=== PATIENT | female | born 1950 | race Caucasian/White ===

== ENCOUNTER 2024-04-22 20:54 | Emergency (ER) | payer MEDICARE, OTHER, SELFPAY ==
[2024-04-22 20:55] VITALS: BP 220/124
[2024-04-22 21:08] VITALS: BP 208/100
[2024-04-22 21:12] VITALS: BMI 38.7
[2024-04-22 21:28] LABS: % Basophils 0.6 % (0-2); % Eosinophils 1.4 % (0-6); % Immature Granulocytes 0.4 % (0-0.5); % Lymphocytes 18.3 % (20.5-51.1); % Monocytes 8.7 % (1.7-9.3); % Neutrophils 70.6 % (42.2-75.2); Absolute Eosinophils 0.1 10^3/uL (0-0.7); Absolute Lymphocytes 1.3 10^3/uL (1.2-3.4); Absolute Monocytes 0.6 10^3/uL (0.1-0.6); Hematocrit 40.4 % (37.0-47.0); Hemoglobin 14.4 g/dL (12.0-16.0); Mean Corp Hgb Conc. 35.6 g/dL (33.0-37.0); Mean Corpuscular Hgb 30.8 pg (27.0-31.0); Mean Corpuscular Volume 86.3 fL (81.0-99.0); Nucleated Red Blood Cells % 0 %; Platelet Count 216 10^3/uL (130-400); Red Blood Cell Count 4.68 10^6/uL (4.20-5.40); White Blood Cell Count 7.1 10^3/uL (4.8-10.8)
[2024-04-22 21:49] LABS: ALT (SGPT) 113 U/L (0-35); AST (SGOT) 257 U/L (14-36); Alkaline Phosphatase 133 U/L (38-126); Blood Urea Nitrogen 17 mg/dl (7-17); Calcium 9.2 mg/dl (8.4-10.2); Carbon Dioxide 29 mmol/L (22-30); Chloride 102 mmol/L (98-107); Estimated Creatinine Clearance 93 ml/min; Glucose 129 mg/dl (70-99); Lipase 77 U/L (23-300); Potassium 3.5 mmol/L (3.5-5.1); Sodium 140 mmol/L (135-145); Total Protein 6.6 g/dl (6.3-8.2); eGFR > 60.00
[2024-04-22 21:52] LABS: Troponin I < 0.012 ng/ml
--- NOTE | 2024-04-22 21:54 | ED.GENMED ---
History of Present Illness
General
Chief Complaint: Blood Pressure Problem
Source: patient and spouse
Exam Limitations: none
Time Seen by Provider: 04/22/24 21:05
Nursing documentation reviewed up to this point in time: agreed with
History of Present Illness
History of Present Illness:
Patient is a 73-year-old female who presents to the emergency department after developing severe mid epigastric pain going through to her back after eating pizza with a dominic nicky this evening. Just as patient got to the hospital she felt better.
Patient felt like something was stuck and that she just need to belch. Patient denies any palpitations or shortness of breath. Patient states it felt like she could not get a deep breath but she was not short of breath. Patient denies any
previous history of similar episodes. Patient denies fever or chills. Patient denies any leg pain or swelling. Patient has been taking beet root for hypertension. Patient has not taken any for a few days. Patient had been on lisinopril up until
about a year or 2 ago. Patient had difficulty getting her prescription refilled so she never went back on the lisinopril. Patient denies any headaches, neck pain, visual or speech difficulties. Patient denies any focal weakness or ataxia.
Patient states that she occasionally gets heartburn.
Past History
Past History
ED Past Medical History: HTN
Social History
Tobacco: Non-smoker
Review of Systems
Review of Systems
All Other Systems: ROS reviewed and negative except as documented in HPI and ROS
Constitutional: Reports no symptoms
EENT: Reports no symptoms
Respiratory: Reports no symptoms
Cardiac: Reports chest pain
ABD/GI: Reports abdominal pain; Denies nausea, vomiting, diarrhea, constipated or anorexia
: Reports no symptoms
Musculoskeletal: Reports back pain
Skin: Reports no symptoms
Neurological: Reports no symptoms
Hematologic/Lymphatic: Reports no symptoms
Psychiatric: Reports no symptoms
Phy Exam
Physical Exam
Physical Exam:
Physical Exam
General: No apparent distress, alert and appropriate, well nourished, well hydrated
HENT: Normocephalic, supple with no lymphadenopathy, no thyromegaly
Eyes: Clear sclera, conjuctiva without injection
Heart: Regular rhythm and rate. No S3, S4. No murmur. No NVD
Lungs: No respiratory distress, no stridor, lung sounds clear and equal bilaterally, chest wall symmetrical and nontender
Abdomen: Soft, nontender, no organomegaly, no CVA tenderness, BS good
Neuro: Alert and oriented x 3, CN II - XII intact, no motor focality, no cerebellar dysfunction
Skin: no rash
Psychiatric: well kept. interactive and cooperative
Extremities: No edema, cyanosis, tenderness, Good and equal peripheral pulses.
Course
Orders/Labs/Results
Orders:
Orders
04/22/24 20:55
ECG [Electrocardiogram (*1)] Urgent
Reason for Study: Abdominal Pain
EKG- Treatment ONCE
04/22/24 21:22
Complete Blood Count/With Diff Urgent
Comprehensive Metabolic Panel Urgent
Lipase Urgent
Troponin I Urgent
04/22/24 21:52
US Abdomen Complete/Upper Urgent
Comment:
Reason For Exam: upper abd pain with elev LFTs
Abnormal Lab Results
04/22/24
21:22
Lymphocytes % 18.3 L %
(20.5-51.1)
Glucose 129 H mg/dl
(70-99)
AST 257 H U/L
(14-36)
ALT 113 H U/L
(0-35)
Alkaline Phosphatase 133 H U/L
(38-126)
04/22/24 21:22
04/22/24 21:22
Vital Signs
Initial and Last Documented VS:
Initial Vital Signs
Temp Pulse Resp BP Pulse Ox
97.4 F 86 18 220/124 99
04/22/24 20:55 04/22/24 20:55 04/22/24 20:55 04/22/24 20:55 04/22/24 20:55
Last Documented Vital Signs
Temp Pulse Resp BP Pulse Ox
97.4 F 89 13 186/98 97
04/22/24 20:55 04/22/24 21:30 04/22/24 21:30 04/22/24 22:41 04/22/24 21:15
*Radiology
Radiology exam reviewed: radiology read reviewed (gall stone)
*Pulse Oximetry
Patient hypoxic: no
*EKG
Interpreted by ED Provider?: Yes
EKG Intrepretation Date: 04/22/24
EKG Intrepretation Time: 22:02
Interpretation: abnormal
Comparison EKG: no comparison EKG present
Heart Rate: 90
Rate: normal
Rhythm: sinus
[place]: left axis deviation
Interval: normal interval
QRS Pattern: normal QRS
Ischemia: non-specific ST changes (No ischemia)
*Jig Fitter Interpretation
Rate: normal
Interpretation: normal
Heart Rate: 90
Rhythm: sinus
*Critical Care Note
Total Time (30-74mins, 75-104mins- exclusive of procedures): Not Applicable
Update Note
Update Note:
Patient's LFTs are elevated. Believe this to be gallbladder related. On ultrasound patient does have cholelithiasis but does not appear to have cholecystitis. Patient's blood pressure continues to be elevated. Patient needs to be on lisinopril.
Patient was not on hydrochlorothiazide with it. Do not believe the patient needs to have her blood pressure lowered acutely in fact it would probably be harmful since she is asymptomatic. Patient will be prescribed lisinopril and to follow-up with
her family doctor as well as general surgery.
ED Attending Note
-
Portions of this chart may have been created with voice recognition software.� Occasional wrong word or��sound alike� substitutions may have occurred due to the inherent limitations of voice recognition software.
Discharge Plan
Departure
Patient Disposition: Home (Routine Discharge)
Date of Disposition: 04/22/24
Time of Disposition: 23:05
Patient with high blood pressure during this ER visit?: Yes
Condition: Good
Covid-19: Not Applicable
Discharge Problem:
Cholelithiasis, Hypertension
Instructions: High Blood Pressure (DC), Gallstones (DC), Low-fat diet, BLOOD PRESSURE
Prescriptions:
New
lisinopril 10 mg tablet
10 mg PO DAILY Qty: 30 6RF
Referrals:
Willam Mahmood MD [Family Provider] - Follow up in 5-7 days
Brett Salguero MD [Active] - Call in 1-3 days for appt
Interventions
Interventions:
*Risk Screen - Suicide Last Done: 04/22/24 20:55
*General Assessment Last Done: 04/22/24 21:13
*Neglect/Abuse Screening Last Done: 04/22/24 20:55
ED- Fall Risk Assessment Last Done: 04/22/24 21:13
*ED COVID-19 Vaccine History Last Done: 04/22/24 21:13
JD-Qpovvx-Yinlcienla Assessment Last Done: 04/22/24 21:13
ED- Cardiac Assessment Last Done: 04/22/24 21:13
ED- Neurological Assessment Last Done: 04/22/24 21:13
ED- Pulmonary Assessment Last Done: 04/22/24 21:13
Discharge Date and Time
Print Language: SAMI
[2024-04-22 22:41] VITALS: BP 186/98
[2024-04-22] MEDS: ZESTRIL 10 MG PO (23:44)
== END 2024-04-22 23:48 | disposition home or self-care (01) ==
LOC: EMR 20:54
PROVIDERS: EMERGENCY PHYSICIAN Emergency Medicine; FAMILY PHYSICIAN Family Medicine
DX: K80.00 Calculus of gallbladder with acute cholecystitis without obstruction (principal); I10 Essential (primary) hypertension
CPT/HCPCS: 99284; 76700; 80053; 83690; 84484; 85025; 93005